=== PATIENT | female | born 1970 | race Caucasian/White ===

== ENCOUNTER 2024-07-06 13:45 | Outpatient (REF) | payer BC, SELFPAY ==
--- NOTE | 2024-07-06 15:32 | MHC.AU.HA3 ---
Hearing Instrument Follow-Up- Binaural Date of Visit: 07/06/24 Follow-Up Summary: Scheduled for hearing test but did not perform as Chely was unsure what her insurance covers and did not want to get a bill for today's evaluation. Advised every insurance is different and she would need to contact the insurance company to inquire about coverage for hearing tests. Chely was hoping hearing test through hospital/going the medical route would allow HAs to be covered through her insurance. Spent majority of appointment discussing insurance including copays, deductibles, coinsurances, benefits/covered services, in-network vs [id number], etc. Reportedly already knows she has hearing loss, had hearing tested and tried HAs ~2 years ago at a clinic in [place]. Noticed immediate benefit but could not afford them at that time. Provided contact information for [facility] (formerly [facility]). Chely plans to inquire about covered services through her insurance (both hearing tests and hearing aids) and check eligibility through [employer]. She will reschedule a hearing test when/if she is ready. Diagnosis Code(s): Primary Diagnosis: H91.93 Unspecified Hearing Loss, Bilateral Signature: Provider: Pollo Witt, [facility]
== END 2024-07-06 13:46 | disposition home or self-care (01) ==
LOC: HO.SH 13:45
PROVIDERS: Visit Provider Physician Assistant
DX: Z13.89 Encounter for screening for other disorder (principal)